=== PATIENT | male | born 1960 | race Caucasian/White ===

== ENCOUNTER 2017-12-26 16:32 | Emergency (ER) | payer BC, OTHER ==
[~2017-12-26] VITALS: Ht 185.4 cm; Wt 77.8 kg
[2017-12-26 16:36] VITALS: TEMP 37.3; Ht 185.4 cm; Wt 77.8 kg
--- NOTE | 2017-12-26 17:15 | DIAGNOSTIC IMAGING REPORT ---
R KNEE 3 VIEWS CLINICAL HISTORY: Right knee pain and swelling COMPARISON: None. DISCUSSION: No acute fractures are visualized. There is a small suprapatellar joint effusion. There is a 9 mm corticated loose body located in the posterior medial joint space. IMPRESSION: 1. No acute fractures 2. Joint effusion 3. 9 mm loose body Electronically signed by: Chip Weinberg M.D. 12/26/2017 5:14 PM Dictated Date/Time: 12/26/2017 5:13 PM
--- NOTE | 2017-12-26 17:22 | EMERGENCY ROOM VISIT NOTE ---
ED Visit Note First contact with patient: 16:41 CHIEF COMPLAINT: Right knee swelling HISTORY OF PRESENT ILLNESS: This 57 year old male patient presents to the emergency department, ambulatory, complaining of 1.5 week long history of right knee swelling. 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 The patient denies any other injuries besides their knee. The patient denies bruising. There is no pain. They rate the discomfort as 4/10. The patient states they are able to walk on it. No numbness or tingling. No previous injuries to this knee. No ankle, foot or hip pain. The patient does report one episode of dizziness earlier today lasting less than 10 seconds with no other symptoms. The patient denies chest pain, dyspnea, headache, lightheadedness, syncope, pre-syncope, abdominal pain, recent illness, fever, chills, nausea, vomiting, body aches, constitutional symptoms, or other associated symptoms. REVIEW OF SYSTEMS: A 6 system review of systems was completed with positives and pertinent negatives listed in the HPI. ALLERGIES: None MEDICATIONS: None PMH: None SOCIAL HISTORY: The patient lives locally with family. He denies drug, alcohol , tobacco use. PHYSICAL EXAM: Vital Signs: Reviewed Nurse's notes, vital signs stable. GENERAL: This is a 57 year old male, no acute distress, but appears in pain, well-developed, well-nourished. SKIN: The skin was without rashes, erythema, edema, or bruising. There is no tenting of the skin. Capillary reflex less than 2 seconds. HEAD: Normocephalic atraumatic. EARS: External auditory canals clear, tympanic membranes pearly garibay without erythema or effusion bilaterally. EYES: Pupils equal round and reactive to light and accommodation. Conjunctivae without injection, sclerae without icterus. Extraocular movements intact. NOSE: Patent, turbinates without inflammation or discharge. No sinus tenderness. MOUTH: Mucous membranes moist. Tonsils are not enlarged. Pharynx without erythema or exudate. Uvula midline. Airway patent. Tongue does not deviate. NECK: Supple without nuchal rigidity. No lymphadenopathy. No thyromegaly. Cervical spine is nontender. No JVD. HEART: Regular rate and rhythm without murmurs gallops or rubs. LUNGS: Clear to auscultation bilaterally without wheezes, rales or rhonchi. No dullness to percussion. No retractions or accessory muscle use. ABDOMEN: Positive bowel sounds x 4. Normal tympanic percussion. Soft, nontender, without masses or organomegaly. Ruiz sign negative. No guarding or rebound tenderness. NEURO: Patient was alert and oriented to person place and time. Normal sensation to light and sharp touch. Deep tendon reflexes 2+ throughout. No focal neurological deficits. MUSCULOSKELETAL: The right knee is moderately swollen. There is no ecchymosis. There is no obvious joint effusion present. The patient is not tender. There is no joint line tenderness. The patella does appropriately subluxate. Range of motion is full. Strength of the quads and hamstrings is 5/5. Tirso's is negative. Francia's and Anterior Drawer tests are negative. There is no discomfort or laxity with varus and valgus stressing. The foot and toes are warm and well-perfused. Dorsalis pedis pulse 2+. Sensation to pain and light touch is intact. Capillary refill less than 2 seconds. RADIOLOGY: [~ rep ct add3]] R KNEE 3 VIEWS CLINICAL HISTORY: Right knee pain and swelling COMPARISON: None. DISCUSSION: No acute fractures are visualized. There is a small suprapatellar joint effusion. There is a 9 mm corticated loose body located in the posterior medial joint space. IMPRESSION: 1. No acute fractures 2. Joint effusion 3. 9 mm loose body Electronically signed by: Chip Weinberg M.D. 12/26/2017 5:14 PM Dictated Date/Time: 12/26/2017 5:13 PM EMERGENCY DEPARTMENT COURSE: I examined the patient. I suspect the episode of dizziness was isolated and unrelated to the patient's knee pain. I did offer him workup including labs, EKG, further imaging, and the patient declines. I feel that this is reasonable, given the symptoms lasting less than 10 seconds and occurring prior to drinking this morning. The patient was given return precautions for worsening symptoms. X-rays of the right knee were reviewed by myself and read by radiology as above. I discussed findings with patient at bedside. Encouraged him to follow-up outpatient with orthopedics. The patient was placed in an omari wrap for compression under my direction and the position was satisfactory. Discharge instructions reviewed. The patient was discharged home in good condition. I attest that I have personally reviewed the patient's current medication list. Patient was found to have normal blood pressure on screening and does not require follow-up. Etiologies such as soft tissue injury, fracture, dislocation, neurovascular compromise, compartment syndrome, septic joint, benign positional vertigo, tumor , infection, hypoglycemia, electrolyte abnormalities, cardiac sources, intracerebral event, toxicologic, neurologic, as well as others were entertained. DIAGNOSIS: Right knee swelling, loose body The chart was completed utilizing [employer] Speech voice recognition software. Grammatical errors, random word insertions, pronoun errors, and incomplete sentences are an occasional consequence of this system due to software limitations, ambient noise, and hardware issues. Any formal questions or concerns about the content, text, or information contained within the body of this dictation should be directly addressed to the provider for clarification. Current/Historical Medications No Active Prescriptions or Reported Meds Allergies Coded Allergies: No Known Allergies (Unverified Allergy, Unknown, 04/22/05) Vital Signs Date Time Temp Pulse Resp B/P (MAP) Pulse Ox O2 Delivery O2 Flow Rate FiO2 12/26/17 16:36 37.3 88 18 131/74 96 Room Air Departure Information Impression Primary Impression: Loose body in knee, right knee Additional Impression: Effusion of right knee joint Dispostion Home / Self-Care Condition GOOD Prescriptions No Active Prescriptions or Reported Meds Referrals No Doctor, Assigned (PCP) [facility] Patient Instructions ED Effusion Knee, [facility] Additional Instructions You were seen in the emergency department today for right knee swelling. As discussed, x-ray did not reveal any large effusion, but there was concern for loose body within the joint. I suspect this may be causing some of your symptoms. I also suspect the increased bending with your job has worsened the swelling you were experiencing. Use the Omari wrap were provided to apply compression to the joint. Use ice with a barrier device between the ice pack and your skin to help with swelling. Ibuprofen(Motrin, Advil) may be used for fever or pain. Use 600mg every six hours as needed. Take with food. Avoid using more than 2400mg in a 24 hour period. Do not use 2400mg per day for more than three consecutive days without physician direction. Prolonged inappropriate use can lead to stomach upset or ulcers. (AND/OR) Acetaminophen(Tylenol) may be used for fever or pain. Use 1000mg every six hours as needed. Avoid using more than 3000mg in a 24 hour period. Follow-up with orthopedics next week for further evaluation and management. You were provided with the contact information for all of the local orthopedic groups. Because you are self-pay, I do recommend you discuss the self-pay options with these different groups to determine which will be the most appropriate for you. Return immediately to the emergency department for any significantly worsening pain, swelling, redness, numbness or tingling, fever, chills, body aches, or other concerning symptoms. Problem Qualifiers
[2017-12-26 18:06] VITALS: BP 124/55; PULSE 83; O2SAT 97
== END 2017-12-26 18:07 | disposition home or self-care (01) ==
LOC: C.EDB 16:34 → C.EDC 18:07
DX: M23.41 Loose body in knee, right knee (principal); M25.461 Effusion, right knee